=== PATIENT | female | born 1960 | race American Indian/Alaskan Native ===

== ENCOUNTER 2017-08-30 07:32 | Outpatient (CLI) | payer MEDICARE ==
--- NOTE | 2017-08-30 10:11 | Nuclear Medicine Report ---
VENTILATION PERFUSION SCAN INDICATION: Shortness of breath, chest pain. COMPARISON: 09/17/2010 CT. FINDINGS: VQ scan performed in anterior, posterior, lateral and oblique projections. 5 mCi of technetium 99m MAA was used for the perfusion assessment while 15 millicuries of Xenon 133 was utilized for the ventilation portion of the study. Ventilation images demonstrate mildly heterogeneous/diminished radiotracer distribution in the left lower lung. Slight air trapping. The perfusion matches the ventilation. Available chest radiograph demonstrates borderline/mild cardiomegaly. Clear, well-expanded lungs. CONCLUSION: Low probability exam for pulmonary embolism. Thank you for the opportunity to participate in this patient's care.
--- NOTE | 2017-08-30 10:14 | XRay Report ---
PORTABLE CHEST INDICATION: Shortness of breath, chest pain. COMPARISON: 11/11/2013 FINDINGS: Portable, frontal chest radiograph demonstrates better inspiration with clear lungs. Borderline/mild cardiomegaly with grossly normal mediastinal and hilar contours, given the difference in technique. An azygous lobe incidentally noted. Mild bony degenerative changes. CONCLUSION: No acute chest process, as described. Thank you for the opportunity to participate in this patient's care.
== END 2017-08-30 07:33 | disposition home or self-care (01) ==
LOC: NM 07:32
PROVIDERS: ATTEND Internal Medicine
DX: R07.9 Chest pain, unspecified (principal); R06.02 Shortness of breath; M47.894 Other spondylosis, thoracic region
CPT/HCPCS: 71045; 78582; A9540; A9558